=== PATIENT | male | born 2000 | race Hispanic/Latino ===

== ENCOUNTER 2025-03-15 13:25 | Emergency (ER) | payer SELFPAY ==
[2025-03-15 13:30] VITALS: BP 134/88; PULSE 105; RESP 18; TEMP 36.5; O2SAT 97; BMI 28.7
--- NOTE | 2025-03-15 14:35 | EDS_ITS ---
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 24-year-old male presents with 2 complaints, mainly a rash in his genital area that has had for 4 to 6 months. He also states that he has had a headache for 2 weeks. He relates history that he has had a rash on his genitals for at least 4 to 6 months. He has tried multiple creams as well as took pills a month ago. He was told that he may have Cristy. He relays history that he had sexual intercourse with a woman, 6 months ago when afterwards he started having that 14 for malodorous groin. He has taken pills for the Cristy and tried multiple ointments, and had an ointment/cream prescribed. He denies any penile discharge or other symptoms. He wants the rash to go away. He also states there are sometimes dry patches on his testicles. Regarding his headache, he denies any nausea or vomiting with this. He has been taking Tylenol with relief of his headache sometimes. He is here in the emergency department because he states that he is concerned and wants to be tested for HIV. [facility] History no medical history Home Medications ?Medication ?Instructions ?Recorded ?Last Taken ?Type nystatin 100,000 unit/gram topical 1 applic topical DA JEREMY #15 grams 03/15/25 Unknown Rx cream Allergy/AdvReac Type Severity Reaction Status Date / Time No Known Allergies Allergy Verified 03/15/25 13:30 Family History no significant family his Surgical History no surgical history Social History Smoking Status: Never smoker ROS ROS ED ROS Narrative Review of systems positive for genital rash that is sometimes itchy, and flaky. He has had a headache almost daily for 2 weeks usually relieved by Tylenol. No fevers or chills, no nausea or vomiting, no penile discharge. No testicular pain. EXAM Physical Exam Narrative Exam Narrative: Afebrile. Vital signs noted. Nontoxic-appearing. Cardiovascular examination reveals a regular rate and rhythm with intermittent tachycardia. Lungs are clear to auscultation bilaterally. Abdomen soft, nontender, with normal active bowel sounds. Neurological examination nonfocal, nonlateralizing. Chaperoned genital examination reveals no testicular tenderness, no inguinal lymphadenopathy, no diffuse candidal rash, no fluctuance or crepitance. There may be small areas of skin irritation on the scrotum, and on the penile shaft as well. Const Vital Signs: 03/15/25 13:30 03/15/25 13:48 Temperature 97.7 F L Temperature Source Temporal Pulse Rate 105 H Respiratory Rate 18 Respiratory Effort Normal Respiratory Pattern Normal Blood Pressure 134/88 H Blood Pressure Mean 103 Pulse Ox 97 Oxygen Delivery Method Room Air MDM MDM MDM Narrative Medical decision making narrative: Patient's medical screening examination is negative for any emergent process. I had a lengthy discussion with him. He did show me the cream that he had been prescribed by another provider and it was hydrocodone 2.5% cream. I told him not to use this on his genitals because this can cause irritation and thinning of the skin. I do not feel he requires antibiotics. For his headache he was given naproxen here in the emergency department and I do not feel he needs CT imaging as he has a normal neurological examination and has not had any trauma to his brain. Additionally, regarding HIV testing, he was referred to a primary care provider into the [facility]. At this point in time, I do not feel he requires any laboratory work or imaging because his medical screening examination is unremarkable. He was told to follow-up with the primary care provider or the health department for his nonemergent needs in the future. Disposition is discharged in stable condition. History & Record Review Discussion w/independent historian: Patient Discharge Plan Triage Chief Complaint: General Illness ED Provider: Franc Fernandez Dx/Rx/DC Orders Clinical Impression: Encounter for medical screening examination, Headache, Rash Instructions: Nonspecific Skin Rash, Understanding Headache Pain, ED Screening Exam Medical Nonurgent Prescriptions: New nystatin 100,000 unit/gram cream 1 applic topical DAILY Qty: 15 0RF Referrals: [facility] [Provider Group] - As soon as possible Health Department,[facility] [Outreach Lab Services] - Activity Restrictions/Additional Instructions: Follow-up with the [facility] and/or the [facility]. [address] [id number] [place] [address] Print Language: Kyrgyz Disposition Disposition: Home, Self Care
[2025-03-15] MEDS: Naproxen 375 MG Tablet PO (14:45)
[2025-03-15 14:48] VITALS: BP 128/60; PULSE 80; RESP 16; TEMP 36.6; O2SAT 98
== END 2025-03-15 14:49 | disposition home or self-care (01) ==
LOC: ED 14:40
PROVIDERS: Emergency Provider Emergency Medicine; Visit Provider Emergency Medicine
DX: R21 Rash and other nonspecific skin eruption (principal); R51.9 Headache, unspecified
CPT/HCPCS: 99282